=== PATIENT | male | born 1935 | race Caucasian/White ===

== ENCOUNTER 2017-10-11 21:49 | Inpatient (IN) | payer MEDICARE, MEDICAID ==
[~2017-10-11] VITALS: Ht 170.2 cm; Wt 64.2 kg
--- NOTE | 2017-10-11 21:52 | NUR ---
PT BIBRA FROM HOME TO ER BED 01. PRESENTS W/ L HIP PAIN S/P MECHANICAL FALL ON THE WAY TO THE BATHROOM APPROX 30-1 HR ZINC FURNACE CHARGER. DENIES HEAD TRAUMA. LLE SHORTENING AND INTERNAL ROTATION NOTED. WAS GIVEN 8MG MORPHINE IVP. GOWNED AND PLACED ON MONITOR. NAD NOTED. AWAITING MD LUNA.
--- NOTE | 2017-10-11 22:23 | NUR ---
DR CASTANON AT BEDSIDE FOR EVAL.
[2017-10-11 22:46] LABS: BASOPHILS % (AUTO) 0.4 % (0.0-2.0); EOSINOPHILS # (AUTO) 0.1 /CMM (0.0-0.7); EOSINOPHILS % (AUTO) 1.6 % (0.0-6.0); HEMATOCRIT 35 % (39-51); HEMOGLOBIN 11.8 g/dL (13.5-17.5); LYMPHOCYTES # (AUTO) 2.2 /CMM (0.8-4.8); MEAN CORPUSCULAR HEMOGLOBIN 30 PG (26.0-33.0); MEAN CORPUSCULAR HGB CONC 34 g/dl (31.0-36.0); MEAN CORPUSCULAR VOLUME 88 fL (80-96); MONOCYTES # (AUTO) 0.5 /CMM (0.1-1.30); NEUTROPHILS # (AUTO) 4.9 /CMM (1.8-8.9); PLATELET COUNT (AUTO) 262 /CMM (150-450); RDW COEFFICIENT OF VARIATION 13.3 (11.5-15.0); RED BLOOD CELL COUNT(AUTO) 3.94 MIL/uL (4.5-6.0); WHITE BLOOD COUNT (AUTO) 7.8 K/uL (4.3-11.0)
--- NOTE | 2017-10-11 22:50 | NUR ---
RADIOLOGY AT BEDSIDE FOR L HIP XRAY.
[2017-10-11 22:57] LABS: CARBON DIOXIDE 27 mmol/L (21-32); CHLORIDE 107 mmol/L (98-107); CREATININE 1.4 mg/dL (0.6-1.3); GLUCOSE 96 mg/dL (74-106); POTASSIUM 4.1 mmol/L (3.5-5.1); SODIUM SERUM 143 mmol/L (136-145); UREA NITROGEN, BLOOD 23 mg/dL (7-18)
[2017-10-11 22:58] LABS: INR 0.94 (0.87-1.13)
[2017-10-11 23:08] LABS: TROPONIN I < 0.017 ng/mL (0.00-0.056)
[2017-10-12] VITALS (7 sets, daily range): BP systolic 119–178; BP diastolic 64–95
--- NOTE | 2017-10-12 00:11 | NUR ---
REPORT GIVEN TO ROS. PT AWAITING TRANSFER TO FLOOR.
[2017-10-12] MEDS ORDERED: BUPR150T5 PO (00:21)
[2017-10-12] MEDS ORDERED: MEMA10TA PO (00:21)
[2017-10-12] MEDS ORDERED: MIRT15TA PO (00:21)
[2017-10-12] MEDS ORDERED: RIVA1PAT3 TP (00:21)
--- NOTE | 2017-10-12 00:25 | NUR ---
MS PONY TRIMMER NOTE PT ARRIVED TO MS FLOOR VIA GURNEY IN STABLE CONDITION. PT IS AWAKE, ALERT AND RESPONSIVE. PT IS [place] SPEAKING, SON AT BEDSIDE. PT'S RESPIRATIONS ARE EVEN AND UNLABORED, NOT IN ANY ACUTE DISTRESS NOTED. PUPILS ARE REACTIVE TO LIGHT. BILATERAL HAND CASH REGISTER OPERATOR ARE STRONG AND EQUAL. LEFT HIP NOTED WITH SHORTENING AND ROTATION. BOWEL SOUNDS ARE PRESENT IN ALL 4 QUADRANTS UPON AUSCULTATION. DENIES ANY BLADDER DISCOMFORT. IV TO LAC, NO INFILTRATION NOTED. DRESSING KEPT CLEAN AND DRY. DENIES ANY PAIN AT THIS TIME. PER SON, PT JUST WANTS TO SLEEP AND GET SOME REST. WILL CONTINUE TO MONITOR FOR PAIN AND PROVIDE CONTINUITY OF CARE. ABDOUL ROCHE IS MADE AWARE OF ADMISSION.
[2017-10-12] MEDS ORDERED: ONDANSETRON HCL/PF 4 MG/2 ML VIAL IVP PRN (01:30)
[2017-10-12] MEDS ORDERED: MAGNESIUM HYDROXIDE 30 ML UDC PO PRN (01:30)
[2017-10-12] MEDS ORDERED: MORPHINE SULFATE INJ 2 MG/ML DISP.SYRIN IV PRN (01:30)
[2017-10-12] MEDS ORDERED: ZOLPIDEM TARTRATE 5 MG TABLET PO PRN (01:30)
[2017-10-12] MEDS ORDERED: MAG HYDROX/AL HYDROX/SIMETH 30 ML UDC PO PRN (01:30)
[2017-10-12] MEDS ORDERED: hydrALAZINE HCL IV 20 MG VIAL IV PRN (01:30)
[2017-10-12] MEDS ORDERED: Z GUARD REMEDY 2 OZ OINT TP PRN (01:30)
--- NOTE | 2017-10-12 01:30 | NUR ---
RN NOTES PT SEEN AND EXAMINED BY ABDOUL BENITEZ W/ ORDERS NOTED AND CARRIED OUT. ORDER TO INSERT JAIMES CATH AND UA SPECIMEN. PT AGREED TO HAVE JAIMES INSERTED. INSERTED JAIMES PER PROTOCOL, USING STERILE TECHNIQUE. PT TOLERATED PROCEDURE WELL. URINE COLLECTED AND PLACED IN FRIDGE. NOTIFIED LAB AND STATED THEY WILL PICK IT UP.
[2017-10-12] MEDS: IV NS 0.9% 1,000 ML IV PRN ×2 (02:00→16:23)
--- NOTE | 2017-10-12 06:15 | NUR ---
MS RN CLOSING NOTES ALL NEEDS MET AND ANTICIPATED. PT IS ALERT AND RESPONSIVE. REMAINS AFEBRILE. RESPIRATIONS ARE EVEN AND UNLABORED, NOT IN ANY ACUTE DISTRESS NOTED. DENIES ANY SOB, CHEST PAIN, N/V. PT IS UNABLE TO FULLY REPOSITION PT HAS A LEFT HIP FX SHOWING LLE SHORTENING AND ROTATION. PT CONTINUES TO LAY FLAT, NO SOB NOTED. IV TO LFA INTACT, NO INFILTRATION NOTED. DRESSING KEPT CLEAN AND DRY. SAFETY MEASURES ARE IN PLACE. BED IS IN ITS LOW AND LOCKED POSITION. REMINDED PT TO USE CALL LIGHT WHEN ASSISTANCE IS NEEDED, PT UNABLE TO PERFORM RETURN DEMONSTRATION. EXPLAINED TO THE SON AND ABLE TO REINFORCE INSTRUCTIONS TO PT. WILL ENDORSE TO NEXT SHIFT FOR CONTINUITY OF CARE.
[2017-10-12 06:33] LABS: APPEARANCE,URINE CLEAR (CLEAR); BILIRUBIN,URINE NEGATIVE (NEGATIVE); BLOOD, URINE NEGATIVE Ery/uL (NEGATIVE); COLOR,URINE YELLOW (YELLOW); KETONES,URINE NEGATIVE (NEGATIVE); LEUKOCYTE ESTERASE ,URINE NEGATIVE (NEGATIVE); NITRITE, URINE NEGATIVE (NEGATIVE); PROTEIN,URINE NEGATIVE (NEGATIVE); UGLUCOSE NEGATIVE (NEGATIVE); UROBILINOGEN,URINE 0.2 EU/dL (0.2)
--- NOTE | 2017-10-12 08:00 | NUR ---
RN NOTES RECEIVED PATIENT IN THE BED RESTING IN THE BED, PATIENT CITIZEN [place] SPEAKER, A/O X1/2, PATIENT HAS NO RESPIRATORY DISTRESS, V/S STABLE, SCHEDULED MEDICATION ADMINISTERED, REFUSED PAIN MEDICATION AT THIS TIME, F/C DRAIN LIGHT YELLOW OUTPUT, IV LINE ON LEFT AC AREA INTACT INFUSING NS AT 75 ML/HR, NEEDS ATTENDED AND ANTICIPATED, CALL LIGHT WITHIN TO REACH, SON NEXT TO THE BED, CONTINUED MONITORING.
[2017-10-12] MEDS: RIVASTIGMINE TARTRATE 4.6 MG PATCH.TD24 TD SCH (09:00)
[2017-10-12 09:33] LABS: IRON, SERUM 34 ug/dl (50-175); TOTAL IRON BINDING CAPACITY 258 ug/dl (250-450)
[2017-10-12 09:38] LABS: TROPONIN I < 0.017 ng/mL (0.00-0.056)
[2017-10-12] MEDS: buPROPion SR 150 MG TABLET.ER PO SCH (09:42)
[2017-10-12] MEDS: MEMANTINE HCL 5 MG TABLET PO SCH ×2 (09:43→19:36)
[2017-10-12 09:50] LABS: CHOLESTEROL 133 mg/dL (<200); FERRITIN 119 ng/mL (8-388); HDL CHOLESTEROL 44 mg/dL (40-60); LDL 82 mg/dL (0-99); TRIGLYCERIDES 76 mg/dL (30-150)
[2017-10-12] MEDS: HYDROCODONE/APAP 5/325MG 1 EACH TABLET PO PRN (09:54)
--- NOTE | 2017-10-12 09:54 | NUR ---
KIRBY MULLINS ADMINISTERED NARCO 5/325 MG PO PRN FOR GENERALIZED PAIN 01/20 , V/S TAKEN BP -109/71, P-86, CALL LIGHT WITHIN TO REACH, SON NEXT TO THE BED , CALL LIGHT WITHIN TO REACH, CONTINUED MONITORING.
[2017-10-12] MEDS: NITROGLYCERIN 30 GM TUBE TP SCH ×2 (11:27→21:48)
[2017-10-12] MEDS: HEPARIN SODIUM, PORCINE 5000 UNITS/1 ML VIAL SQ SCH ×2 (11:57→21:00)
--- NOTE | 2017-10-12 13:17 | NUR ---
RN NOTES PER JONATHAN MONTE ATOMIC PHYSICS TEACHER PATIENT CLEAR FOR SURGERY , TALK TO THE DESTINY NUGENT PATIENT WILL SCHEDULE SURGERY TODAY. PATIENT IS NPO SINCE YESTERDAY MIDNIGHT , CONSENT FORM SIGNED, TYPE AND CROSSMATCH ORDERED.CONTINUED MONITORING.
[2017-10-12] MEDS: HYDROCODONE/APAP 10/325MG 1 EA TABLET PO PRN ×2 (16:22→22:36)
--- NOTE | 2017-10-12 16:22 | NUR ---
rn notes ADMINISTERED NARCO 10/325 MG PO PRN LEFT HIP PAIN 03/22 PER PATIENT REQUEST, V/S TAKEN BP 126/ 76, P-86, CONTINUED MONITORING.
--- NOTE | 2017-10-12 18:30 | NUR ---
RN NOTES PATIENT RESTING AT THIS TIME IN THE BED , SCHEDULED MEDIATION ADMINISTERED, V/S STABLE, MEDICATION WERE ADMINISTERED FOR PAIN EFFECTIVE, F/C DRAIN LIGHT YELLOW OUTPUT. IV INFUSING NS AT 75 ML/HR INTACT, CALL LIGHT WITHIN TO REACH. FAMILY NEXT TO THE BED. ENDORSED ONCOMING NURSE FOR CHAO.
--- NOTE | 2017-10-12 18:50 | NUR ---
rn notes medication were administered for pain and nausea and vomiting is effective, v/s stable, patient sleeping at this time,. call light within to reach, endorsed oncoming nurse for joselyn. Addendum: 10/12/17 at 1952 by CARMEN DUPONT RN UPPER NOTES 1849 IS INCORRECT EATERY.
--- NOTE | 2017-10-12 19:00 | NUR ---
RN NOTES: RECEIVED ASLEEP ON BED, LYING COMFORTABLY, A/OX1-2,[place]ORE[place] SPEAKING , ON ROOM AIR,NO SOB OR SIGN OF RESPIRATORY DISTRESS NOTED,NO PAIN OR DISCOMFORT AT THIS TIME,ASLEEP, FAMILY AT BED SIDE; ON IVF ON NS AT 75ML/HR VIA IV PUMP, LAC#24 INTACT, JAIMES CATH DRAINING WELL INTO YELLOWISH COLORED URINE AT 200CC LEVEL,FOR LEFT HIP INTRAMEDULLARY FELICITAS TOMORROW UNDER ,CONSENT SIGNED,FOR NPO AT 12 MIDNIGHT,LLE SHORTENING AND ROTATION NOTED; FALL,SAFETY AND ASPIRATION PRECAUTION OBSERVED, BED LOW AND LOCKED, CALL LIGHT KEPT WITHIN EASY REACH.KEPT ON CLOSE WATCH.
--- NOTE | 2017-10-12 19:30 | NUR ---
RN NOTES: LATE ENTRY PER RN(MORNING SHIFT) ENDORSEMENT, PATIENT HAD 600CC URINE OUTPUT.
[2017-10-12] MEDS: MIRTAZAPINE 15 MG TABLET PO SCH (19:36)
--- NOTE | 2017-10-12 21:44 | NUR ---
RN NOTES: LOVENOX NOT GIVEN, HOLD PER ABDOUL BENITEZ, FOR PROCEDURE TOMORROW IN THE MORNING.
--- NOTE | 2017-10-12 22:38 | NUR ---
RN NOTES: AWAKE, COMPLAINED OF PAIN 10/10, REQUEST FOR MEDICATION PRN MEDS GIVEN AFTE NON PHARMACOLOGIC INTERVENTION WAS RENDERED,KEPT IN COMFORTABLE POSITION.
--- NOTE | 2017-10-12 22:56 | NUR ---
RN NOTES: PATIENT WILL BE TRANSFERRED TO MS 2ND FLOOR ROOM 205-1, ENDORSED TO RN FOR CONTINUITY OF CARE, AND WILL INFORM FAMILY REGARDING ROOM TRANSFER.
--- NOTE | 2017-10-12 23:04 | NUR ---
RN NOTES: PATIENT TRANSFERRED TO MS 2ND FLOOR ROMM 205-2,ENDORSED TO MEERARN) INCLUDING PATIENT BELONGINGS,LEFT MESSAGE TO SUNI SIERRA REGARDING ROOM TRANSFER. Addendum: 10/12/17 at 2310 by IRVIN GILLIAM RN ENDORSED TO MONTY) FOR CONTINUITY OF CARE.
--- NOTE | 2017-10-12 23:20 | NUR ---
MS2/RN RECEIVE PATIENT FROM [facility] [[email or web address] VIA BED, PATIENT IS AWAKE, ALERT, ORIENTED, COMFORTABLE, NO C/O PAIN, NO SIGNS OF DISTRESS NOTED, KEPT COMFORTABLE IN BED, TAUGHT THE USE OF CALL LIGHT PLACED IT AT BEDSIDE, FALL PRECAUTION PER PROTOCOL INSTITUTED. WILL MONITOR.
--- NOTE | 2017-10-13 00:19 | NUR ---
MS2/RN PATIENT IS SLEEPING EASILY AROUSABLE, APPEAR COMFORTABLE, NO DISTRESS NOTED, NPO STATUS STARTED, CALL LIGHT IN REACH. WILL MONITOR.
[2017-10-13 04:00] VITALS: BP 145/81
[2017-10-13 06:34] LABS: BASOPHILS % (AUTO) 0.2 % (0.0-2.0); EOSINOPHILS % (AUTO) 0.8 % (0.0-6.0); HEMATOCRIT 31 % (39-51); HEMOGLOBIN 10.7 g/dL (13.5-17.5); LYMPHOCYTES # (AUTO) 1.6 /CMM (0.8-4.8); LYMPHOCYTES % (AUTO) 27.2 % (20.0-44.0); MEAN CORPUSCULAR HEMOGLOBIN 31 PG (26.0-33.0); MEAN CORPUSCULAR HGB CONC 35 g/dl (31.0-36.0); MEAN CORPUSCULAR VOLUME 89 fL (80-96); MONOCYTES # (AUTO) 0.4 /CMM (0.1-1.30); MONOCYTES % (AUTO) 7.4 % (2.0-12.0); NEUTROPHILS # (AUTO) 3.9 /CMM (1.8-8.9); NEUTROPHILS % (AUTO) 64.4 % (43.0-81.0); PLATELET COUNT (AUTO) 183 /CMM (150-450); RDW COEFFICIENT OF VARIATION 13.1 (11.5-15.0); RED BLOOD CELL COUNT(AUTO) 3.47 MIL/uL (4.5-6.0)
[2017-10-13 06:35] LABS: ALANINE AMINOTRANSFERASE 15 U/L (12-78); ALBUMIN 2.8 g/dL (3.4-5.0); ALKALINE PHOSPHATASE 62 U/L (46-116); ASPARTATE AMINOTRANSFERASE 17 U/L (15-37); BILIRUBIN,TOTAL 0.5 mg/dL (0.2-1.0); CALCIUM, SERUM 8.6 mg/dL (8.5-10.1); CARBON DIOXIDE 27 mmol/L (21-32); CHLORIDE 106 mmol/L (98-107); CREATININE 1.2 mg/dL (0.6-1.3); GLUCOSE 92 mg/dL (74-106); PHOSPHORUS 2.8 mg/dL (2.5-4.9); POTASSIUM 4.1 mmol/L (3.5-5.1); SODIUM SERUM 140 mmol/L (136-145); TOTAL PROTEIN, SERUM 6.3 g/dL (6.4-8.2); UREA NITROGEN, BLOOD 16 mg/dL (7-18)
[2017-10-13 06:45] LABS: TROPONIN I < 0.017 ng/mL (0.00-0.056)
--- NOTE | 2017-10-13 07:30 | NUR ---
AM RN NOTE Received patient sleeping comfortably in his bed, no acute distress noted. NPO status for surgery. Cont on IV fluids as ordered. Will continue to monitor.
--- NOTE | 2017-10-13 07:37 | NUR ---
MS2/RN PATIENT IS AWAKE, COMFORTABLE, NO C/O PAIN, NO DISTRESS NOTED, ALL NEEDS ATTENDED AT THIS TIME. WILL ENDORSED.
[2017-10-13 08:00] VITALS: BP 169/85
[2017-10-13] MEDS: MEMANTINE HCL 5 MG TABLET PO SCH ×2 (09:00→17:09)
[2017-10-13] MEDS: RIVASTIGMINE TARTRATE 4.6 MG PATCH.TD24 TD SCH (09:00)
[2017-10-13] MEDS: NITROGLYCERIN 30 GM TUBE TP SCH ×2 (09:00→20:39)
[2017-10-13] MEDS: HEPARIN SODIUM, PORCINE 5000 UNITS/1 ML VIAL SQ SCH (09:00)
[2017-10-13] MEDS: buPROPion SR 150 MG TABLET.ER PO SCH (09:00)
--- NOTE | 2017-10-13 09:11 | NUR ---
AM RN NOTE IV site noted with leakage, re-inserted new site on LFA #20 x1 attempt.
--- NOTE | 2017-10-13 09:19 | NUR ---
AM RN NOTE Pt awake, son at bedside. Left for surgery at this time as accompanied by OR staff.
[2017-10-13] MEDS ORDERED: FENTANYL PF 100MCG/2ML AMPUL ONE ×2 (09:47→11:29)
[2017-10-13] MEDS ORDERED: BUPIVACAINE 0.5 % PF 150 MG/30 ML VIAL ONE (09:52)
[2017-10-13] MEDS ORDERED: BACITRACIN 50000 UNITS/VIAL ONE (09:52)
[2017-10-13 11:09] LABS: CHOLESTEROL 129 mg/dL (<200); HDL CHOLESTEROL 42 mg/dL (40-60); LDL 79 mg/dL (0-99); TRIGLYCERIDES 84 mg/dL (30-150)
[2017-10-13 12:30] VITALS: BP 155/93
--- NOTE | 2017-10-13 12:30 | NUR ---
AM RN NOTE Patient came back from OR S/P left hip surgery. Pt arouses upon touch. V/S BP155/93 T97.4 P88 R18 O2 sat 99% @ 4L/min via NC. Report given by OR nurse and orders faxed to pharmacy and noted and carried out. Son at bedside. Will continue to monitor.
[2017-10-13 12:45] VITALS: BP 137/74
[2017-10-13 13:00] VITALS: BP 151/83
[2017-10-13] MEDS: ACETAMINOPHEN 325 MG TABLET PO PRN (14:35)
[2017-10-13] MEDS: SOD FERRIC GLUC 125 MG in IV NS 0.9% 100 ML IV SCH (14:51)
[2017-10-13] MEDS: IV NS 0.9% 1,000 ML IV PRN (16:44)
[2017-10-13] MEDS: MIRTAZAPINE 15 MG TABLET PO SCH (17:09)
[2017-10-13] MEDS: HYDROCODONE/APAP 5/325MG 1 EACH TABLET PO PRN (18:22)
--- NOTE | 2017-10-13 19:01 | NUR ---
AM RN NOTE Pt resting in his bed, family at bedside. IV site intact and continue on IV fluids. PRN pain meds given with eff results. Dressing on L hip intact. Will endorse care to next shift.
--- NOTE | 2017-10-13 19:30 | NUR ---
MS/RN OPENING NOTES PT RECEIVED RESTING COMFORTABLY IN BED. ACCOMPANIED BY FAMILY. ON 2L O2 VIA NC, BREATHING EVEN AND UNLABORED. NO S/S OF SOB AT THIS TIME. PT RECENTLY RECEIVED PAIN MEDICATION, STATES HE IS COMFORTABLE AT THIS TIME. DRESSING TO LEFT HIP C/D/I. JAIMES IN PLACE AND DRAINING TO GRAVITY. IV TO LFA PATENT AND INTACT RUNNING IVF ORDERED. BED IN LOW/LOCKED POSITION WITH CALL LIGHT IN REACH. SIDE RAILS UPX2. WILL CONTINUE TO MONITOR
[2017-10-13 20:00] VITALS: BP 126/73
[2017-10-13] MEDS: CEFAZOLIN SODIUM 1 GM in IV SODIUM CHLORIDE 0.9% 50 ML IV SCH (20:39)
[2017-10-14 04:00] VITALS: BP 153/71
[2017-10-14] MEDS: CEFAZOLIN SODIUM 1 GM in IV SODIUM CHLORIDE 0.9% 50 ML IV SCH ×2 (04:16→13:23)
[2017-10-14] MEDS: HYDROCODONE/APAP 5/325MG 1 EACH TABLET PO PRN (04:17)
--- NOTE | 2017-10-14 04:20 | NUR ---
MS/RN NOTES PT WITH ELEVATED BP AND FACIAL GRIMACING, MOANING NOTED. ADMINISTERED PRN NORCO ORDERED. WILL MONITOR FOR EFFECTIVENESS
[2017-10-14 06:43] LABS: BASOPHILS % (AUTO) 0.3 % (0.0-2.0); EOSINOPHILS % (AUTO) 0.6 % (0.0-6.0); HEMATOCRIT 27 % (39-51); HEMOGLOBIN 9.4 g/dL (13.5-17.5); LYMPHOCYTES # (AUTO) 1.1 /CMM (0.8-4.8); LYMPHOCYTES % (AUTO) 13.5 % (20.0-44.0); MEAN CORPUSCULAR HEMOGLOBIN 31 PG (26.0-33.0); MEAN CORPUSCULAR HGB CONC 35 g/dl (31.0-36.0); MEAN CORPUSCULAR VOLUME 88 fL (80-96); MONOCYTES # (AUTO) 0.5 /CMM (0.1-1.30); MONOCYTES % (AUTO) 6.1 % (2.0-12.0); NEUTROPHILS # (AUTO) 6.4 /CMM (1.8-8.9); NEUTROPHILS % (AUTO) 79.5 % (43.0-81.0); PLATELET COUNT (AUTO) 177 /CMM (150-450); RDW COEFFICIENT OF VARIATION 13.1 (11.5-15.0); RED BLOOD CELL COUNT(AUTO) 3.08 MIL/uL (4.5-6.0)
[2017-10-14 06:53] LABS: TROPONIN I < 0.017 ng/mL (0.00-0.056)
[2017-10-14 06:57] LABS: ALANINE AMINOTRANSFERASE 15 U/L (12-78); ALBUMIN 2.4 g/dL (3.4-5.0); ALKALINE PHOSPHATASE 62 U/L (46-116); ASPARTATE AMINOTRANSFERASE 21 U/L (15-37); BILIRUBIN,TOTAL 0.4 mg/dL (0.2-1.0); CALCIUM, SERUM 8.2 mg/dL (8.5-10.1); CARBON DIOXIDE 23 mmol/L (21-32); CHLORIDE 108 mmol/L (98-107); CREATININE 1.3 mg/dL (0.6-1.3); GLUCOSE 121 mg/dL (74-106); MAGNESIUM 1.9 mg/dL (1.8-2.4); PHOSPHORUS 2.1 mg/dL (2.5-4.9); SODIUM SERUM 140 mmol/L (136-145); TOTAL PROTEIN, SERUM 5.9 g/dL (6.4-8.2); UREA NITROGEN, BLOOD 16 mg/dL (7-18)
--- NOTE | 2017-10-14 07:30 | NUR ---
RN MS NOTES PT IN BED, AWAKE, ALERT AND ORIENTED, NO COMPLAINT OF PAIN, BREATHING PATTERN EVEN AND NOT LABORED, IV FLUIDS INFUSING WELL, CALL LIGHT WITHIN REACH, KEPT WARM AND COMFORTABLE IN BED.
--- NOTE | 2017-10-14 07:55 | NUR ---
MS/RN CLOSING NOTES PT RESTING COMFORTABLY IN BED. REMAINS ON 2L O2 VIA NC, BREATHING EVEN AND UNLABORED. NO S/S OF SOB AT THIS TIME. PT APPEARS COMFORTABLE AT THIS TIME, PAIN MANAGED THROUGHOUT SHIFT. JAIMES IN PLACE AND DRAINING TO GRAVITY. IV TO LFA PATENT AND INTACT RUNNING IVF ORDERED. BED IN LOW/LOCKED POSITION WITH CALL LIGHT IN REACH. SIDE RAILS UPX2. TURNED/REPOSITIONED Q2H. ENDORSED TO DAY SHIFT RN CHAO.
[2017-10-14 08:00] VITALS: BP 145/75
[2017-10-14] MEDS: RIVASTIGMINE TARTRATE 4.6 MG PATCH.TD24 TD SCH (09:17)
[2017-10-14] MEDS: MEMANTINE HCL 5 MG TABLET PO SCH ×2 (09:17→17:05)
[2017-10-14] MEDS: NITROGLYCERIN 30 GM TUBE TP SCH ×2 (09:17→21:00)
[2017-10-14] MEDS: buPROPion SR 150 MG TABLET.ER PO SCH (09:17)
[2017-10-14] MEDS: ENOXAPARIN SODIUM 40 MG/0.4 ML DISP.SYRIN SQ SCH (09:23)
[2017-10-14] MEDS: IV NS 0.9% 1,000 ML IV PRN (09:26)
--- NOTE | 2017-10-14 13:00 | NUR ---
RN MS NOTES PT IN BED, AWAKE, ALERT AND ORIENTED, NO COMPLAINT OF PAIN, NOT IN DISTRESS, SEEN BY PHYSICAL THERAPIST TODAY, TOLERATED EXERCISES WELL, SEEN BY JONATHAN EMERGENCY MEDICINE SPECIALIST TODAY.
[2017-10-14] MEDS: EXELON PO SCH (13:23)
[2017-10-14] MEDS: ACETAMINOPHEN 325 MG TABLET PO PRN (13:27)
[2017-10-14] MEDS ORDERED: K PHOS NEUTRAL 250 MG TABLET PO ONE (14:00)
[2017-10-14] MEDS: SOD FERRIC GLUC 125 MG in IV NS 0.9% 100 ML IV SCH (15:23)
[2017-10-14 16:00] VITALS: BP 141/76
[2017-10-14] MEDS: MIRTAZAPINE 15 MG TABLET PO SCH (17:05)
--- NOTE | 2017-10-14 18:30 | NUR ---
RN MS NOTES PT IN BED, AWAKE, ALERT AND ORIENTED, ASSISTED WITH MEALS, DAUGHTER ABRAHAM AT BEDSIDE, PM MEDS GIVEN ORDERED, IV FLUIDS INFUSING WELL, F/C DRAINING WELL WITH CLEAR, YELLOW URINE, PM CARE RENDERED, ALL NEEDS ATTENDED.
--- NOTE | 2017-10-14 19:50 | NUR ---
RN OPENING NOTES [facility] CAS[facility]. FOUND Pt AWAKE, RESTING IN BED. Pt IS A/OX1, MAL[place] SPEAKING, BUT IS VERBAL. IV ACCESS ON LFA #22G, IVF NS @75ML/HR. SAFETY MEASURES IN PLACE. BED LOW, LOCKED, HOB ELEVATED, SIDE RAILS UP, CALL LIGHT AND BEDSIDE TABLE WITHIN REACH. WILL CONTINUE TO MONITOR Pt THROUGHOUT THE NIGHT FOR SAFETY.
[2017-10-14 20:00] VITALS: BP 145/73
[2017-10-14 20:19] VITALS: BP 145/73
[2017-10-15 06:47] LABS: BASOPHILS % (AUTO) 0.5 % (0.0-2.0); EOSINOPHILS # (AUTO) 0.1 /CMM (0.0-0.7); EOSINOPHILS % (AUTO) 1.6 % (0.0-6.0); HEMATOCRIT 25 % (39-51); HEMOGLOBIN 8.7 g/dL (13.5-17.5); LYMPHOCYTES # (AUTO) 1.8 /CMM (0.8-4.8); LYMPHOCYTES % (AUTO) 24.6 % (20.0-44.0); MEAN CORPUSCULAR HEMOGLOBIN 30 PG (26.0-33.0); MEAN CORPUSCULAR HGB CONC 34 g/dl (31.0-36.0); MEAN CORPUSCULAR VOLUME 89 fL (80-96); MONOCYTES # (AUTO) 0.4 /CMM (0.1-1.30); MONOCYTES % (AUTO) 6.2 % (2.0-12.0); NEUTROPHILS # (AUTO) 4.8 /CMM (1.8-8.9); NEUTROPHILS % (AUTO) 67.1 % (43.0-81.0); PLATELET COUNT (AUTO) 171 /CMM (150-450); RDW COEFFICIENT OF VARIATION 13.2 (11.5-15.0); RED BLOOD CELL COUNT(AUTO) 2.87 MIL/uL (4.5-6.0); WHITE BLOOD COUNT (AUTO) 7.1 K/uL (4.3-11.0)
--- NOTE | 2017-10-15 06:50 | NUR ---
RN CLOSING NOTES NO SIGNIFICANT CHANGES IN Pt's CONDITION. Pt IN STABLE CONDITION AT THIS TIME. VS STABLE. NO S/S OF ACUTE DISTRESS OR SOB NOTED DURING THE NIGHT. ALL NEEDS MET AND ATTENDED TO. SAFETY MEASURES IN PLACE. WILL ENDORSE TO DAYSHIFT RN FOR Pt's CHAO.
[2017-10-15 06:55] LABS: CALCIUM, SERUM 8.3 mg/dL (8.5-10.1); CARBON DIOXIDE 25 mmol/L (21-32); CHLORIDE 109 mmol/L (98-107); CREATININE 1.2 mg/dL (0.6-1.3); GLUCOSE 104 mg/dL (74-106); POTASSIUM 3.5 mmol/L (3.5-5.1); SODIUM SERUM 144 mmol/L (136-145); UREA NITROGEN, BLOOD 15 mg/dL (7-18)
[2017-10-15 08:00] VITALS: BP 135/73
--- NOTE | 2017-10-15 08:00 | NUR ---
MS RN NOTES PATIENT IN BED RESTING NO SOB OR ACUTE DISTRESS NOTED. PERIPHERAL IV INTACT PATENT. SON AT BEDSIDE. BED IN LOW LOCKED POSITION, CALL LIGHT WITHIN REACH. WILL CONTINUE TO MONITOR.
[2017-10-15] MEDS: NITROGLYCERIN 30 GM TUBE TP SCH ×2 (09:00→21:00)
[2017-10-15] MEDS: WELLBUTRIN 150 MG PO SCH (09:08)
[2017-10-15] MEDS: EXELON PO SCH (09:08)
[2017-10-15] MEDS: MEMANTINE HCL 5 MG TABLET PO SCH ×2 (09:09→16:46)
[2017-10-15] MEDS: ENOXAPARIN SODIUM 40 MG/0.4 ML DISP.SYRIN SQ SCH (09:10)
[2017-10-15] MEDS: AMLODIPINE BESYLATE 5 MG TABLET PO SCH (10:57)
--- NOTE | 2017-10-15 11:00 | NUR ---
MS RN NOTES PATIENT SEEN BY PT PERFORMED THERAPY TOLERATED WELL.
[2017-10-15 16:00] VITALS: BP 131/62
[2017-10-15] MEDS: MIRTAZAPINE 15 MG TABLET PO SCH (17:04)
[2017-10-15] MEDS: SOD FERRIC GLUC 125 MG in IV NS 0.9% 100 ML IV SCH (17:12)
--- NOTE | 2017-10-15 19:40 | NUR ---
MS RN NOTES PATIENT IN BED RESTING NO SOB OR ACUTE DISTRESS NOTED. ALL DUE MEDICATIONS ADMINISTERED. ALL NEEDS WILL ENDORSE TO PM SHIFT CHAO.
--- NOTE | 2017-10-15 19:50 | NUR ---
MS RN NOTE: PATIENT RESTING IN BED, NO ACUTE DISTRESS NOTED, FAMILY AT BEDSIDE. BREATHING EVEN AND UNLABORED, NO SOB NOTED. IV TO LFA AND RIGHT HAND IN PLACE. LEFT SHOULDER IN SLING WITH DRESSING IN PLACE, CLEAN AND DRY. BED LOCKED AND IN LOWEST POSITION, CALL LIGHT IN REACH. WILL CONTINUE TO MONITOR. Addendum: 10/15/17 at 3934 by MICHELLE ULLOA RN ERROR, WRONG PATIENT ENTRY
--- NOTE | 2017-10-15 19:50 | NUR ---
MS RN NOTE: PATIENT RESTING IN BED, NO ACUTE DISTRESS NOTED, FAMILY AT BEDSIDE. BREATHING EVEN AND UNLABORED, NO SOB NOTED. IV TO LFA IN PLACE. JAIMES CATHETER IN PLACE, EMPTY AT THIS TIME. DRESSING TO LEFT HIP IN PLACE, NO BLEEDING NOTED. BED LOCKED AND IN LOWEST POSITION, CALL LIGHT IN REACH. WILL CONTINUE TO MONITOR.
[2017-10-15 20:00] VITALS: BP 130/60
--- NOTE | 2017-10-15 21:45 | NUR ---
MS RN NOTE: PATIENT AND FAMILY REFUSE TO HAVE NITRO PATCH. EXPLAINED RISK AND BENEFITS AND STILL CONTINUES TO REFUSE MEDICATION. WILL CONTINUE TO MONITOR.
--- NOTE | 2017-10-16 06:20 | NUR ---
MS RN NOTE: PATIENT RESTING IN BED, NO ACUTE DISTRESS NOTED. BREATHING EVEN AND UNLABORED, NO SOB NOTED. IV TO LFA IN PLACE. JAIMES CATHETER IN PLACE. DRESSING TO LEFT HIP IN PLACE, NO BLEEDING NOTED. BED LOCKED AND IN LOWEST POSITION, CALL LIGHT IN REACH. WILL ENDORSE TO DAY NURSE TO CONTINUE WITH PLAN OF CARE.
[2017-10-16 06:47] LABS: BASOPHILS % (AUTO) 0.4 % (0.0-2.0); EOSINOPHILS # (AUTO) 0.2 /CMM (0.0-0.7); EOSINOPHILS % (AUTO) 2.5 % (0.0-6.0); HEMATOCRIT 25 % (39-51); HEMOGLOBIN 8.4 g/dL (13.5-17.5); LYMPHOCYTES # (AUTO) 1.9 /CMM (0.8-4.8); LYMPHOCYTES % (AUTO) 24.1 % (20.0-44.0); MEAN CORPUSCULAR HEMOGLOBIN 30 PG (26.0-33.0); MEAN CORPUSCULAR HGB CONC 34 g/dl (31.0-36.0); MEAN CORPUSCULAR VOLUME 89 fL (80-96); MONOCYTES # (AUTO) 0.5 /CMM (0.1-1.30); NEUTROPHILS # (AUTO) 5.1 /CMM (1.8-8.9); PLATELET COUNT (AUTO) 193 /CMM (150-450); RDW COEFFICIENT OF VARIATION 13.4 (11.5-15.0); RED BLOOD CELL COUNT(AUTO) 2.78 MIL/uL (4.5-6.0); WHITE BLOOD COUNT (AUTO) 7.8 K/uL (4.3-11.0)
[2017-10-16 08:00] VITALS: BP 104/52
--- NOTE | 2017-10-16 08:00 | NUR ---
MS RN NOTES PATIENT IN BED RESTING NO SOB OR ACUTE DISTRESS NOTED. PERIPHERAL IV INTACT PATENT. BED IN LOW LOCKED POSITION . WILL CONTINUE TO MONITOR.
[2017-10-16] MEDS: AMLODIPINE BESYLATE 5 MG TABLET PO SCH (09:00)
[2017-10-16] MEDS: NITROGLYCERIN 30 GM TUBE TP SCH ×2 (09:00→21:00)
[2017-10-16] MEDS: EXELON PO SCH (09:04)
[2017-10-16] MEDS: MEMANTINE HCL 5 MG TABLET PO SCH ×2 (09:04→17:16)
[2017-10-16] MEDS: WELLBUTRIN 150 MG PO SCH (09:04)
[2017-10-16] MEDS: ENOXAPARIN SODIUM 40 MG/0.4 ML DISP.SYRIN SQ SCH (09:06)
[2017-10-16] MEDS: SOD FERRIC GLUC 125 MG in IV NS 0.9% 100 ML IV SCH (15:29)
[2017-10-16 16:00] VITALS: BP 127/65
[2017-10-16] MEDS: MIRTAZAPINE 15 MG TABLET PO SCH (17:16)
--- NOTE | 2017-10-16 19:21 | NUR ---
MS RN NOTES PATIENT IN BED RESTING NO SOB OR ACUTE DISTRESS NOTED. ALL DUE MEDICATIONS ADMINISTERED. ALL NEEDS MET WILL ENDORSE TO PM SHIFT CHAO.
[2017-10-16 20:19] VITALS: BP 120/64
[2017-10-16] MEDS ORDERED: PANTOPRAZOLE 40 MG VIAL IV SCH (22:00)
--- NOTE | 2017-10-16 22:45 | NUR ---
MS RN NOTE: PATIENT WITH NEW ORDER FOR PROTONIX 40MG IV, CALLED PATIENT SONXAVI AND INFORMED THAT PATIENT HAD NEW ORDER FOR PROTONIX TO HELP REDUCE STOMACH ACID IF PATIENT HAS GI BLEEDING. PATIENT SON OK FOR PATIENT TO HAVE MEDICATION ORDERED. WILL CONTINUE TO MONITOR.
--- NOTE | 2017-10-16 23:00 | NUR ---
MS RN NOTE: PATIENT IV TO LFA LEAKING, REMOVED, COVERED WITH GAUZE, PRESSURE APPLIED AND SECURED WITH TAPE. NEW IV SITE STARTED TO RIGHT FOREARM #22 WITH GOOD BLOOD RETURN. WILL CONTINUE TO MONITOR.
[2017-10-17 06:23] LABS: BASOPHILS % (AUTO) 0.3 % (0.0-2.0); EOSINOPHILS # (AUTO) 0.2 /CMM (0.0-0.7); EOSINOPHILS % (AUTO) 3.4 % (0.0-6.0); HEMATOCRIT 25 % (39-51); HEMOGLOBIN 8.6 g/dL (13.5-17.5); LYMPHOCYTES # (AUTO) 1.6 /CMM (0.8-4.8); LYMPHOCYTES % (AUTO) 24.1 % (20.0-44.0); MEAN CORPUSCULAR HEMOGLOBIN 30 PG (26.0-33.0); MEAN CORPUSCULAR HGB CONC 34 g/dl (31.0-36.0); MEAN CORPUSCULAR VOLUME 89 fL (80-96); MONOCYTES # (AUTO) 0.5 /CMM (0.1-1.30); NEUTROPHILS # (AUTO) 4.5 /CMM (1.8-8.9); NEUTROPHILS % (AUTO) 65.2 % (43.0-81.0); PLATELET COUNT (AUTO) 211 /CMM (150-450); RDW COEFFICIENT OF VARIATION 13.5 (11.5-15.0); RED BLOOD CELL COUNT(AUTO) 2.84 MIL/uL (4.5-6.0); WHITE BLOOD COUNT (AUTO) 6.8 K/uL (4.3-11.0)
--- NOTE | 2017-10-17 06:30 | NUR ---
MS RN NOTE: PATIENT RESTING IN BED, NO ACUTE DISTRESS NOTED. BREATHING EVEN AND UNLABORED, NO SOB NOTED. IV TO RFA IN PLACE. JAIMES CATHETER IN PLACE. DRESSING TO LEFT HIP IN PLACE. BED LOCKED AND IN LOWEST POSITION, CALL LIGHT IN REACH. WILL ENDORSE TO DAY NURSE TO CONTINUE WITH PLAN OF CARE.
--- NOTE | 2017-10-17 07:35 | NUR ---
MS RN NOTE: PATIENT RESTING IN BED, NO ACUTE DISTRESS NOTED, FAMILY AT BEDSIDE. BREATHING EVEN AND UNLABORED, NO SOB NOTED. IV TO LFA IN PLACE, NO REDNESS OR INFILTRATION NOTED. JAIMES CATHETER IN PLACE, EMPTY AT THIS TIME. DRESSING TO LEFT HIP IN PLACE, NO BLEEDING NOTED. BED LOCKED AND IN LOWEST POSITION, CALL LIGHT IN REACH. WILL CONTINUE TO MONITOR.
[2017-10-17 08:00] VITALS: BP 148/67
[2017-10-17] MEDS: NITROGLYCERIN 30 GM TUBE TP SCH (09:00)
[2017-10-17] MEDS: WELLBUTRIN 150 MG PO SCH (09:13)
[2017-10-17 09:14] VITALS: BP 148/67
[2017-10-17] MEDS: AMLODIPINE BESYLATE 5 MG TABLET PO SCH (09:14)
[2017-10-17] MEDS: MEMANTINE HCL 5 MG TABLET PO SCH (09:14)
[2017-10-17] MEDS: EXELON PO SCH (09:15)
[2017-10-17] MEDS: ENOXAPARIN SODIUM 40 MG/0.4 ML DISP.SYRIN SQ SCH (09:22)
[2017-10-17 13:19] LABS: OCCULT BLOOD STOOL NEGATIVE (NEGATIVE)
[2017-10-17] MEDS ORDERED: PANT40TA2 PO (13:19)
[2017-10-17] MEDS ORDERED: ENOX40DI SQ (13:19)
[2017-10-17] MEDS ORDERED: AMLO5TAB2 PO (13:19)
[2017-10-17] MEDS: SOD FERRIC GLUC 125 MG in IV NS 0.9% 100 ML IV SCH (14:25)
--- NOTE | 2017-10-17 16:00 | NUR ---
MS RN NOTE: PATIENT RESTING IN BED, NO ACUTE DISTRESS NOTED, FAMILY AT BEDSIDE. BREATHING EVEN AND UNLABORED, NO SOB NOTED. IV TO LFA AND ID BAND REMOVED WITH NO ASE NOTED. JAIMES CATHETER IN PLACE,TO KEEP IN PLACE AND CONTINUE TO ASSESS NEED AT ARU. DRESSING TO LEFT HIP IN PLACE, CHANGED, NO BLEEDING NOTED. PATIENT WITH DISCHARGE ORDERS REVIEWED WITH ARU RN GRABIEL AND SON ELEUTERIO WITH NOTED VERBAL UNDERSTANDING. PICTURES OF LEFT HIP REFUSED X3 NURSING EDUCATION REINFORCED. ALL DISCHARGE PAPERWORK PROVIDED TO SON AND COPIES MADE FOR ARU, REPORT GIVEN TO AMBULANCE TRANSPORT FOR CONTINUITY OF CARE, DISCHARGED IN STABLE CONDITION
== END 2017-10-17 16:00 | DRG 480 ==
LOC: ER 21:52 → MED 23:46 → MEDSG2 10-12 23:35 → UNDODISIN 10-15 15:30
PROVIDERS: ADMIT Nurse Practitioner Acute Care; ATTEND Nurse Practitioner Acute Care
PROC: 0QS706Z Reposition Left Upper Femur with Intramedullary Internal Fixation Device, Open Approach (ICD-10-PCS; principal; 2017-10-13 09:25)
DX: S72.142A Displaced intertrochanteric fracture of left femur, initial encounter for closed fracture (principal); N17.0 Acute kidney failure with tubular necrosis; E44.0 Moderate protein-calorie malnutrition; F03.90 Unspecified dementia, unspecified severity, without behavioral disturbance, psychotic disturbance, mood disturbance, and anxiety; D63.8 Anemia in other chronic diseases classified elsewhere; F32.9 Major depressive disorder, single episode, unspecified; E88.09 Other disorders of plasma-protein metabolism, not elsewhere classified; I12.9 Hypertensive chronic kidney disease with stage 1 through stage 4 chronic kidney disease, or unspecified chronic kidney disease; N18.9 Chronic kidney disease, unspecified; W19.XXXA Unspecified fall, initial encounter; Y93.9 Activity, unspecified; Y92.009 Unspecified place in unspecified non-institutional (private) residence as the place of occurrence of the external cause; Z68.22 Body mass index [BMI] 22.0-22.9, adult
CPT/HCPCS: 36415; 71045-TC; 73020; 73502; 80048-TC; 80053-TC; 80061-TC; 81000-TC; 82272-TC; 82306; 82728-TC; 83540-TC; 83735-TC; 84100-TC; 84439-TC; 84443-TC; 84484-TC; 85025-TC; 85652-TC; 85730-TC; 86850-TC; 87081-TC; 93307-TC; 94799-TC; 97110-TC; 97116-TC; 97530-TC; A4216; A4606; A6402; C9113; J0690; J1644; J1650; J2916; J3010; J3490; J7030; Z7610